=== PATIENT | female | born 1970 | race Caucasian/White ===

== ENCOUNTER 2023-10-20 16:14 | Inpatient (IN) | payer OTHER ==
[~2023-10-20] VITALS: Ht 157.5 cm; Wt 61.7 kg
[2023-10-20 16:26] VITALS: BP 144/80; PULSE 72; RESP 19; TEMP 99; O2SAT 98
[2023-10-20 17:27] LABS: APPEARANCE,URINE CLEAR (CLEAR); BILIRUBIN,URINE NEGATIVE (NEGATIVE); BLOOD, URINE NEGATIVE (NEGATIVE); COLOR,URINE YELLOW (YELLOW); LEUKOCYTE ESTERASE ,URINE 1+ (NEGATIVE); NITRITE, URINE NEGATIVE (NEGATIVE); PH,URINE 7.5 (5.0-9.0); PROTEIN,URINE NEGATIVE (NEGATIVE); UGLUCOSE NEGATIVE (NEGATIVE); UROBILINOGEN,URINE 0.2 EU/dL (0.2 - 1)
[2023-10-20 17:45] LABS: BACTERIA,URINE >30 (MANY) /HPF (None Seen); RBC,URINE 0-5 /HPF (0-5); SQUAMOUS EPITHELIAL CELL,UR 0-3 (FEW) /LPF (0-3 (FEW))
[2023-10-20 17:46] LABS: MUCUS,URINE None Seen /LPF (None Seen); TRICHOMONAS,URINE None Seen /HPF (None Seen); WHITE BLOOD CELL CASTS,URINE None Seen /LPF (None Seen); YEAST,URINE None Seen /HPF (None Seen)
[2023-10-20 18:16] LABS: BASOPHILS % (AUTO) 0.3 % (0.0-2.0); EOSINOPHILS % (AUTO) 0.4 % (0.0-4.0); HEMATOCRIT 37.4 % (36-48); HEMOGLOBIN 13.1 g/dL (12.0-16.0); LYMPHOCYTES # (AUTO) 1.6 K/uL (2.5-16.5); MEAN CORPUSCULAR HEMOGLOBIN 30 pg (27-31); MEAN CORPUSCULAR HGB CONC 35 g/dL (33-37); MEAN CORPUSCULAR VOLUME 86.2 fL (80-94); MONOCYTES # (AUTO) 0.3 K/uL (0.8-1.0); MONOCYTES % (AUTO) 7.6 % (1.7-9.3); NEUTROPHILS # (AUTO) 2.5 K/uL (1.8-7.7); NEUTROPHILS % (AUTO) 55.7 % (42.2-75.2); PLATELET COUNT (AUTO) 228 K/uL (140-450); RED BLOOD CELL COUNT(AUTO) 4.33 MIL/uL (4.20-5.40); RED CELL DISTRIBUTION WIDTH 13.5 % (11.6-13.7); WHITE BLOOD COUNT (AUTO) 4.5 K/uL (4.8-10.8)
[2023-10-20] MEDS ORDERED: GENTAMICIN 80 MG/2 ML VIAL ONE ×2 (18:17→18:30)
[2023-10-20 18:37] LABS: ANION GAP 11.9 (8-16); CARBON DIOXIDE 26.9 mmol/L (21-32); CREATININE 0.7 mg/dL (0.6-1.3); POTASSIUM 3.8 mmol/L (3.5-5.1)
[2023-10-20] MEDS: GENTAMICIN 300 MG in DEXTROSE 5% 100 ML IV ONE (18:38)
[2023-10-20] MEDS ORDERED: ONDANSETRON 4 MG/2 ML VIAL IVP PRN (21:05)
[2023-10-20] MEDS ORDERED: MORPHINE SULFATE 2 MG/ML SYR IVP PRN (21:05)
[2023-10-20] MEDS ORDERED: ACETAMINOPHEN 325 MG TAB PO PRN (21:05)
[2023-10-20] MEDS: NACL 0.9% 1,000 ML IV SCH (21:38)
[2023-10-20] MEDS ORDERED: METO25TA PO (22:07)
[2023-10-21 07:06] LABS: BASOPHILS % (AUTO) 0.4 % (0.0-2.0); EOSINOPHILS % (AUTO) 0.7 % (0.0-4.0); HEMATOCRIT 34.7 % (36-48); HEMOGLOBIN 12.2 g/dL (12.0-16.0); LYMPHOCYTES # (AUTO) 1.4 K/uL (2.5-16.5); MEAN CORPUSCULAR HEMOGLOBIN 30 pg (27-31); MEAN CORPUSCULAR HGB CONC 35 g/dL (33-37); MEAN CORPUSCULAR VOLUME 85.7 fL (80-94); MONOCYTES # (AUTO) 0.3 K/uL (0.8-1.0); MONOCYTES % (AUTO) 8.7 % (1.7-9.3); NEUTROPHILS % (AUTO) 53.2 % (42.2-75.2); PLATELET COUNT (AUTO) 206 K/uL (140-450); RED BLOOD CELL COUNT(AUTO) 4.05 MIL/uL (4.20-5.40); RED CELL DISTRIBUTION WIDTH 13.6 % (11.6-13.7); WHITE BLOOD COUNT (AUTO) 3.8 K/uL (4.8-10.8)
[2023-10-21 07:21] LABS: ANION GAP 10.7 (8-16); CALCIUM 8.4 mg/dL (8.5-10.1); CREATININE 0.6 mg/dL (0.6-1.3); POTASSIUM 3.7 mmol/L (3.5-5.1)
[2023-10-21 09:00] VITALS: PULSE 55; RESP 18; O2SAT 100
[2023-10-21] MEDS ORDERED: GENTAMICIN 120 MG in DEXTROSE 5% 100 ML IV SCH (09:00)
[2023-10-21] MEDS ORDERED: GENTAMICIN PER PHARMACY MC PRN (10:05)
[2023-10-21 16:00] VITALS: BP 130/61; PULSE 57; RESP 18; TEMP 97.2; O2SAT 99
[2023-10-21] MEDS: GENTAMICIN 80 MG in DEXTROSE 5% 100 ML IV SCH (18:07)
[2023-10-21 20:00] VITALS: PULSE 63; O2SAT 97
[2023-10-21] MEDS: MEDS-TO-BEDS MC SCH (20:34)
[2023-10-22 04:00] VITALS: BP 129/60; PULSE 66; RESP 18; TEMP 97.8; O2SAT 97
[2023-10-22 08:00] VITALS: BP 145/61; PULSE 60; PULSE 63; RESP 18; RESP 19; TEMP 97.1; O2SAT 96; O2SAT 97
[2023-10-22 09:43] LABS: ANION GAP 9.4 (8-16); CALCIUM 8.5 mg/dL (8.5-10.1); CARBON DIOXIDE 29.6 mmol/L (21-32); CREATININE 0.7 mg/dL (0.6-1.3)
[2023-10-22 15:44] VITALS: BP 129/61; PULSE 66; RESP 18; TEMP 96.8; O2SAT 98
[2023-10-22 20:00] VITALS: PULSE 65; RESP 18; O2SAT 96
[2023-10-23 04:00] VITALS: BP 131/81; PULSE 72; RESP 18; TEMP 98.1; O2SAT 98
[2023-10-23 08:00] VITALS: BP 132/54; PULSE 65; RESP 18; RESP 20; TEMP 97.8; TEMP 98.3; O2SAT 96; O2SAT 98
[2023-10-23 20:00] VITALS: BP 126/64; PULSE 72; RESP 18; TEMP 97.4; O2SAT 98
[2023-10-24 06:41] LABS: BASOPHILS % (AUTO) 0.7 % (0.0-2.0); HEMATOCRIT 33.9 % (36-48); HEMOGLOBIN 11.9 g/dL (12.0-16.0); LYMPHOCYTES # (AUTO) 1.4 K/uL (2.5-16.5); LYMPHOCYTES % (AUTO) 39.8 % (20.5-51.1); MEAN CORPUSCULAR HEMOGLOBIN 30 pg (27-31); MEAN CORPUSCULAR HGB CONC 35 g/dL (33-37); MEAN CORPUSCULAR VOLUME 85.4 fL (80-94); MONOCYTES # (AUTO) 0.4 K/uL (0.8-1.0); MONOCYTES % (AUTO) 10.4 % (1.7-9.3); NEUTROPHILS # (AUTO) 1.7 K/uL (1.8-7.7); NEUTROPHILS % (AUTO) 48.1 % (42.2-75.2); PLATELET COUNT (AUTO) 198 K/uL (140-450); RED BLOOD CELL COUNT(AUTO) 3.96 MIL/uL (4.20-5.40); RED CELL DISTRIBUTION WIDTH 13.3 % (11.6-13.7); WHITE BLOOD COUNT (AUTO) 3.5 K/uL (4.8-10.8)
[2023-10-24 06:49] LABS: ANION GAP 9.9 (8-16); CALCIUM 8.1 mg/dL (8.5-10.1); CARBON DIOXIDE 27.1 mmol/L (21-32); CREATININE 0.6 mg/dL (0.6-1.3)
[2023-10-24 08:00] VITALS: BP 141/77; PULSE 52; RESP 18; TEMP 96.8; O2SAT 99
[2023-10-24] MEDS: METOPROLOL SUCCINATE 50 MG TABER PO SCH (08:45)
[2023-10-24 09:52] VITALS: TEMP 96.8
[2023-10-24 11:34] VITALS: BP 152/67; PULSE 60; RESP 18; TEMP 96.8; O2SAT 99
[2023-10-24 20:00] VITALS: BP 128/56; PULSE 63; RESP 18; TEMP 97.7; O2SAT 97
[2023-10-25 04:40] VITALS: BP 109/49; PULSE 61; RESP 18; TEMP 96.3; O2SAT 99
[2023-10-25 07:29] VITALS: TEMP 97
[2023-10-25 07:30] VITALS: BP 114/55; PULSE 66; RESP 18; TEMP 97; O2SAT 97
[2023-10-25 15:02] VITALS: BP 114/55; PULSE 66; RESP 18; TEMP 97
[2023-10-25 16:19] VITALS: BP 138/72; PULSE 61; RESP 18; TEMP 97.3; O2SAT 97
== END 2023-10-25 16:34 | disposition home or self-care (01) | DRG 463 ==
LOC: MED 16:14 → MMU 21:05 → MTU 10-21 08:35
PROVIDERS: ADMIT Hospitalist; ATTEND Hospitalist
DX: N39.0 Urinary tract infection, site not specified (principal); B96.20 Unspecified Escherichia coli [E. coli] as the cause of diseases classified elsewhere; E11.9 Type 2 diabetes mellitus without complications; I10 Essential (primary) hypertension; Z16.30 Resistance to unspecified antimicrobial drugs; Z88.0 Allergy status to penicillin; Z88.2 Allergy status to sulfonamides; Z79.899 Other long term (current) drug therapy; Z90.710 Acquired absence of both cervix and uterus
CPT/HCPCS: 36415; 71045; 80048; 80170; 81001; 83735; 85025; 87040; 87081; 87086; 93005; 96360; 99285; J1580; J7060